=== PATIENT | female | born 1960 | race Caucasian/White ===

== ENCOUNTER → 2019-11-16 09:51 | Outpatient (CLI) | payer BC, SELFPAY ==
--- NOTE | ~2019-11-16 | MM_ITS ---
EXAMINATION: MM screening [facility] BI w [facility]al[facility] HISTORY: Screening mammogram TECHNIQUE: Craniocaudal and mediolateral oblique 3-D tomosynthesis images were obtained and synthetic 2-D images were generated. CAD analysis was submitted and interpreted. COMPARISON: 10/17/2018, 10/10/2017, 10/05/2016 bilateral digital screening mammogram examinations BREAST PARENCHYMAL COMPOSITION: There are scattered areas of fibroglandular density. FINDINGS: No significant change of circumscribed benign appearing opacities of right breast. Minimal benign calcification. There is no evidence of suspicious mass, calcification, or architectural distor tion to suggest malignancy in either breast. There has been no suspicious interval change. IMPRESSION: 1. No mammographic evidence of malignancy. 2. Recommend routine screening mammography in one year. BI-RADS Category 2: Benign finding(s). Reviewed, dictated and finalized at location A. T LINE OPERATOR
--- NOTE | ~2019-11-16 | DEXA_ITS ---
Bone Density Report Name: Jody Davalos Age: 58 Sex: Female Ethnicity: White Date of : 1960 Indication: postmenopausal; screening for osteoporosis; asthma or emphysema; hysterectomy; Referring Provider: GENIE, NOHEMY Study: Bone densitometry was performed. Exam Date: November 16, 2019 Accession number: [id number] Bone Density: Region BMD T-score Z-score Classification AP Spine (L1, L2, L4) 0.988 -0.4 1.0 Normal Femoral Neck (Left) 0.700 -1.3 -0.1 Osteopenia Total Hip (Left) 0.917 -0.2 0.7 Normal Femoral Neck (Right) 0.739 -1.0 0.3 Normal Total Hip (Right) 0.850 -0.8 0.2 Normal Total Hip Mean 0.884 -0.5 0.5 Normal World Health Organization criteria for BMD impression classify patients as: Normal (T-score at or above -1.0), Osteopenia (T-score between -1.0 and -2.5), or Osteoporosis (T-score at or below -2.5). 10-year Fracture Risk(1): Major Osteoporotic Fracture 7.0% Hip Fracture 0.8% Reported Risk Factors: [place] (), Neck BMD=0.700, BMI=35.6, smoking (1) FRAX(R) Version 3.08. Fracture probability calculated for an untreated patient. Fracture probability may be lower if the patient has received treatment. Previous Exams: Region Exam Age BMD T-score BMD Change BMD Change Date g/cm2 vs Baseline vs Previous AP Spine(L1, L2, L4) 11/16/2019 58 0.988 -0.4 -0.045 -0.039* 10/05/2016 55 1.027 -0.1 -0.006 0.002 10/05/2016 55 1.024 -0.1 -0.008 0.022 07/23/2014 53 1.003 -0.3 -0.030* -0.017 07/11/2012 51 1.020 -0.1 -0.013 -0.013 06/29/2010 49 1.033 0.0 Total Hip(Left) 11/16/2019 58 0.917 -0.2 0.082 0.002 10/05/2016 55 0.914 -0.2 0.080 -0.027 07/23/2014 53 0.941 0.0 0.107* 0.097* 07/11/2012 51 0.845 -0.8 0.010 0.010 06/29/2010 49 0.835 -0.9 Total Hip(Right) 11/16/2019 58 0.850 -0.8 0.058 0.022 10/05/2016 55 0.828 -0.9 0.036 0.031 07/23/2014 53 0.797 -1.2 0.005 -0.048* 07/11/2012 51 0.845 -0.8 0.054* 0.054* 06/29/2010 49 0.792 -1.2 *Denotes significance at 95% confidence level, LSC for AP Spine = 0.022 g/cm2, LSC for Total Hip = 0.027 g/cm2 Clinical Information Provided by Patient: Smokes Has used the following medications: Vitamin D Has the following medical
== END ==
PROVIDERS: Visit Provider Nurse Practitioner
DX: Z12.31 Encounter for screening mammogram for malignant neoplasm of breast (principal); Z78.0 Asymptomatic menopausal state; M85.852 Other specified disorders of bone density and structure, left thigh
CPT/HCPCS: 77063; 77067; 77080

== ENCOUNTER → 2020-12-29 07:23 | Outpatient (CLI) | payer BC, SELFPAY ==
--- NOTE | ~2020-12-29 | MM_ITS ---
EXAMINATION: MM screening [facility] BI w odalys HISTORY: Screening TECHNIQUE: Craniocaudal and mediolateral oblique 3-D tomosynthesis images were obtained and synthetic 2-D images were generated. CAD analysis was submitted and interpreted. COMPARISON: Comparison to multiple prior studies sequentially, with oldest reviewed study dated 09/28. BREAST PARENCHYMAL COMPOSITION: There are scattered areas of fibroglandular density. FINDINGS: Stable benign-appearing right breast mass in the periareolar location. There is no evidence of suspicious mass, calcification, or architectural distortion to suggest malignancy in either breas t. There has been no suspicious interval change. IMPRESSION: 1. No mammographic evidence of malignancy. 2. Recommend routine screening mammography in one year. BI-RADS Category 2: Benign finding(s). Reviewed, dictated and finalized at location A.
== END ==
PROVIDERS: PCP Internal Medicine; Visit Provider Nurse Practitioner
DX: Z12.31 Encounter for screening mammogram for malignant neoplasm of breast (principal)
CPT/HCPCS: 77063; 77067

== ENCOUNTER → 2022-01-01 10:00 | Outpatient (CLI) | payer BC, SELFPAY ==
--- NOTE | ~2022-01-01 | MM_ITS ---
EXAMINATION: MM screening [facility] BI w odalys HISTORY: Screening mammogram TECHNIQUE: Craniocaudal and mediolateral oblique 3-D tomosynthesis images were obtained and synthetic 2-D images were generated. CAD analysis was submitted and interpreted. COMPARISON: 12/29/2020, 11/16/2019, 10/17/2018 bilateral screening mammogram examinations BREAST PARENCHYMAL COMPOSITION: There are scattered areas of fibroglandular density. FINDINGS: Stable circumscribed 6 mm opacity in the right lateral subareolar area, unchanged since 201 9. There is no evidence of suspicious mass, calcification, or architectural distortion to suggest malign tashia in either breast. There has been no suspicious interval change. IMPRESSION: 1. No mammographic evidence of malignancy. 2. Recommend routine screening mammography in one year. BI-RADS Category 2: Benign finding(s). Reviewed, dictated and finalized at location A.
== END ==
PROVIDERS: PCP Internal Medicine; Visit Provider Nurse Practitioner
DX: Z12.31 Encounter for screening mammogram for malignant neoplasm of breast (principal)
CPT/HCPCS: 77063; 77067

== ENCOUNTER 2022-11-08 01:10 | Day surgery (SDC) | payer BC, SELFPAY ==
[2022-10-29 09:03] VITALS: BMI 26.3
--- NOTE | 2022-11-07 14:05 | PM.HPGS ---
History of Present Illness History of Present Illness Consent: Risks, benefits, and alternatives have been discussed and questions answered. Patient agrees to proceed with procedure. Chief complaint: neoplasm screening Narrative: Jody Davalos is a 61 year old female Referred for colon cancer screening. Her last colonoscopy, which was normal, was 12 years ago. Review of Systems Review of Systems: All systems reviewed & are unremarkable except as noted in HPI and below PMFSH Social History Social History Years smoked: 40 Smoking status: Current every day smoker Tobacco type: cigarettes Alcohol intake: current Drinks per week: 3 Living arrangements: with family Spiritual care concerns: No Meds Home Medications and Allergies Home Medications Medication Instructions Recorded Confirmed Type ergocalciferol (vitamin D2) 1,250 1,250 mcg PO WEEKLY 10/29/22 11/08/22 History mcg (50,000 unit) capsule (Vitamin D2) metformin 750 mg tablet,extended 750 mg PO BID 10/29/22 11/08/22 History release 24 hr omeprazole 20 mg capsule,delayed 20 mg PO DAILY 10/29/22 11/08/22 History release Allergies Allergy/AdvReac Type Severity Reaction Status Date / Time niacin Allergy Mild Itching Verified 11/08/22 07:13 Exam Resp: Auscultation: clear to auscultation bilaterally Cardio: Rate: regular rate Rhythm: regular rhythm GI: GI Palp: Yes Soft to palpation and No Tenderness to palpation present (GI) Assessment and Plan Assessment and plan (1) Colon cancer screening: Code(s): Z12.11 - Encounter for screening for malignant neoplasm of colon Status: Acute Assessment and Plan: Colonoscopy with possible biopsy or polypectomy or cautery or injection of substances.
[2022-11-08 07:14] VITALS: BP 133/86; PULSE 58; RESP 20; TEMP 36.9; O2SAT 100; BMI 26.1
[2022-11-08] MEDS: LACTATED RINGERS 1,000 ML 150 ML IV CONT (07:23)
--- NOTE | 2022-11-08 07:26 | WPDANESEPPF ---
Anes - Initial Pre Proc Eval Procedure: Operation Date: 11/08/22 08:30 Proposed Procedures p Screening Colonoscopy - Sky Kaiser MD Date/Time: 11/08/22 07:26 Surgeon: Sky Kaiser MD Pre Op Diagnosis: neoplasm screening Patient Data Age: 61 Gender: F Height: 1.68 m Weight: 73.5 kg Last Vital Signs Temp 36.9 C 11/08/22 07:14 Pulse 58 L 11/08/22 07:14 Resp 20 11/08/22 07:14 BP 133/86 11/08/22 07:14 Pulse Ox 100 11/08/22 07:14 O2 Del Method Room Air 11/08/22 07:14 Allergies Allergy/AdvReac Type Severity Reaction Status Date / Time niacin Allergy Mild Itching Verified 11/08/22 07:13 Home Medications Medication Instructions Recorded Confirmed Type ergocalciferol (vitamin D2) 1,250 1,250 mcg PO WEEKLY 10/29/22 11/08/22 History mcg (50,000 unit) capsule (Vitamin D2) metformin 750 mg tablet,extended 750 mg PO BID 10/29/22 11/08/22 History release 24 hr omeprazole 20 mg capsule,delayed 20 mg PO DAILY 10/29/22 11/08/22 History release Patient hx anesthesia problems: none Family hx anesthesia problems: none Results Review: All pre-operative results and documents have been reviewed as part of the pre-operative evaluation. [facility] Social History Social History Years smoked: 40 Smoking status: Current every day smoker Tobacco type: cigarettes Alcohol intake: current Drinks per week: 3 Living arrangements: with family Spiritual care concerns: No Anes - Eval Final PreProcedure Day of Procedure 11/08/22 07:26 Patient weight: overweight Heart: regular rate and rhythm Lungs: clear to auscultation Airway: Mallampati scale class II Neurological: alert and oriented Last oral intake: >/= 8 hours ASA classification: III Emergent: no Anesthetic plan: proceed Anesthesia type and monitoring: general GIVS and standard monitoring Results Review: All pre-operative results and documents have been reviewed as part of the pre-operative evaluation. Informed Consent: The patient's anesthetic plan and its attendant risks and benefits were discussed with the patient/family/POA. Questions were solicited and answers provided to the satisfaction of the patient/family/POA.
[2022-11-08 08:24] VITALS: BP 94/47; PULSE 52; RESP 15; O2SAT 95
[2022-11-08 08:34] VITALS: BP 133/57; PULSE 46; RESP 19; O2SAT 100
[2022-11-08 08:44] VITALS: BP 113/60; PULSE 49; RESP 19; O2SAT 100
== END 2022-11-08 08:53 | disposition home or self-care (01) ==
PROVIDERS: PCP Internal Medicine; Visit Provider Internal Medicine Gastroenterology
PROC: 0DJD8ZZ Inspection of Lower Intestinal Tract, Via Natural or Artificial Opening Endoscopic (ICD-10-PCS; CPT 45378; principal; 2022-11-08 08:30)
DX: Z12.11 Encounter for screening for malignant neoplasm of colon (principal); K64.8 Other hemorrhoids; F17.210 Nicotine dependence, cigarettes, uncomplicated; Z79.84 Long term (current) use of oral hypoglycemic drugs
CPT/HCPCS: 45378; J2704; J7120

== ENCOUNTER → 2023-01-07 10:03 | Outpatient (CLI) | payer BC, SELFPAY ==
--- NOTE | ~2023-01-07 | DEXA_ITS ---
Bone Density Report Name: MITCH POE Age: 62 Sex: Female Ethnicity: White Date of : 1960 Indication: postmenopausal; screening for osteoporosis; asthma or emphysema; hysterectomy; Referring Provider: GENIE, NOHEMY Study: Bone densitometry was performed. Exam Date: January 07, 2023 Accession number: [id number] Bone Density: Region BMD T-score Z-score Classification AP Spine (L1-L4) 1.070 0.2 1.8 Normal Femoral Neck (Left) 0.697 -1.4 0.0 Osteopenia Total Hip (Left) 0.880 -0.5 0.6 Normal Femoral Neck (Right) 0.716 -1.2 0.2 Osteopenia Total Hip (Right) 0.821 -1.0 0.1 Normal Total Hip Mean 0.851 -0.8 0.4 Normal World Health Organization criteria for BMD impression classify patients as: Normal (T-score at or above -1.0), Osteopenia (T-score between -1.0 and -2.5), or Osteoporosis (T-score at or below -2.5). 10-year Fracture Risk(1): Major Osteoporotic Fracture 8.2% Hip Fracture 1.1% Reported Risk Factors: [place] (), Neck BMD=0.697, BMI=26.5, smoking (1) FRAX(R) Version 3.08. Fracture probability calculated for an untreated patient. Fracture probability may be lower if the patient has received treatment. Previous Exams: Region Exam Age BMD T-score BMD Change BMD Change Date g/cm2 vs Baseline vs Previous AP Spine(L1-L4) 01/07/2023 62 1.070 0.2 0.014 0.025 10/05/2016 55 1.045 0.0 -0.011 -0.004 10/05/2016 55 1.049 0.0 -0.007 0.021 07/23/2014 53 1.028 -0.2 -0.028* -0.011 07/11/2012 51 1.039 -0.1 -0.016 -0.016 06/29/2010 49 1.056 0.1 Total Hip(Left) 01/07/2023 62 0.880 -0.5 0.046* -0.036 11/16/2019 58 0.917 -0.2 0.082 0.002 10/05/2016 55 0.914 -0.2 0.080 -0.027 07/23/2014 53 0.941 0.0 0.107* 0.097* 07/11/2012 51 0.845 -0.8 0.010 0.010 06/29/2010 49 0.835 -0.9 Total Hip(Right) 01/07/2023 62 0.821 -1.0 0.030* -0.028 11/16/2019 58 0.850 -0.8 0.058 0.022 10/05/2016 55 0.828 -0.9 0.036 0.031 07/23/2014 53 0.797 -1.2 0.005 -0.048* 07/11/2012 51 0.845 -0.8 0.054* 0.054* 06/29/2010 49 0.792 -1.2 *Denotes significance at 95% confidence level, LSC for AP Spine = 0.022 g/cm2, LSC for Total Hip = 0.027 g/cm2 Clinical Information Provided by Patient:
--- NOTE | ~2023-01-07 | MM_ITS ---
EXAMINATION: MM screening [facility] BI w odalys HISTORY: Screening mammogram TECHNIQUE: Craniocaudal and mediolateral oblique 3-D tomosynthesis images were obtained and synthetic 2-D images were generated. CAD analysis was submitted and interpreted. COMPARISON: January 01, 2022, December 29, 2020, November 16, 2019 bilateral screening mammogram examinations BREAST PARENCHYMAL COMPOSITION: There are scattered areas of fibroglandular density. FINDINGS: Stable 6 mm circumscribed opacity in the anterior mid to lower outer right breast. There is no evidence of suspicious mass, calcification, or architectural distortion to suggest malignancy in either breast. There has been no suspicious interval change. IMPRESSION: 1. No mammographic evidence of malignancy. 2. Recommend routine screening mammography in one year. BI-RADS Category 2: Benign finding(s). Reviewed, dictated and finalized at location A.
== END ==
PROVIDERS: PCP Internal Medicine; Visit Provider Nurse Practitioner
DX: Z12.31 Encounter for screening mammogram for malignant neoplasm of breast (principal); Z78.0 Asymptomatic menopausal state; M85.852 Other specified disorders of bone density and structure, left thigh; M85.851 Other specified disorders of bone density and structure, right thigh
CPT/HCPCS: 77063; 77067; 77080